=== PATIENT | female | born 1985 | race American Indian/Alaskan Native ===

== ENCOUNTER 2018-12-24 14:41 | Outpatient (CLI) | payer OTHER | END 2018-12-24 16:41 | disposition home or self-care (01) | LOC: NST 14:41 | DX: Z34.83 Encounter for supervision of other normal pregnancy, third trimester (principal) ==

== ENCOUNTER 2018-12-29 10:24 | Outpatient (CLI) | payer OTHER | END 2018-12-29 11:38 | disposition home or self-care (01) | LOC: NST 10:24 | DX: Z34.83 Encounter for supervision of other normal pregnancy, third trimester (principal) ==

== ENCOUNTER 2019-01-07 15:21 | Outpatient (CLI) | payer OTHER | END 2019-01-07 15:24 | disposition home or self-care (01) | LOC: RAD 15:21 | DX: M25.512 Pain in left shoulder (principal) ==

== ENCOUNTER 2019-01-14 14:57 | Inpatient (IN) | payer OTHER ==
[~2019-01-14] VITALS: Ht 157.5 cm; Wt 2.7 kg
[2019-01-14] MEDS ORDERED: MIRALAX17 GM PO (16:21)
[2019-01-14] MEDS ORDERED: IRON325 MG PO (16:21)
[2019-01-14] MEDS ORDERED: 8 HOUR PAIN RE650 M1 PO (16:21)
[2019-01-14] MEDS ORDERED: LOVENOX40 MG/0.4 SUBCUTANEO (16:21)
== END 2019-01-22 13:26 | disposition home or self-care (01) | DRG 788 ==
LOC: LDR 01-16 11:30 → O/R 01-19 05:30 → OB/GYN 01-19 05:30 → LDR 01-19 07:00 → OB/GYN 01-19 10:34 → LDR 01-19 11:30 → OB/GYN 01-19 13:41
PROVIDERS: ADMIT Obstetrics & Gynecology Maternal & Fetal Medicine
PROC: 4A1HXCZ Monitoring of Products of Conception, Cardiac Rate, External Approach (ICD-10-PCS; 2019-01-19)
PROC: 10D00Z1 Extraction of Products of Conception, Low, Open Approach (ICD-10-PCS; principal; 2019-01-19 07:00)
DX: O82 Encounter for cesarean delivery without indication (principal); O26.893 Other specified pregnancy related conditions, third trimester; G71.09 Other specified muscular dystrophies; S82.62XA Displaced fracture of lateral malleolus of left fibula, initial encounter for closed fracture; Z3A.37 37 weeks gestation of pregnancy; Z37.0 Single live birth; Z22.330 Carrier of Group B streptococcus

== ENCOUNTER → 2019-01-15 | Outpatient (CLI) | payer OTHER ==
[~2019-01-15] MED LIST: 8 HOUR PAIN RE650 M1 PO; IRON325 MG PO; LOVENOX40 MG/0.4 SUBCUTANEO; MIRALAX17 GM PO
== END | disposition home or self-care (01) ==
LOC: NUCLEAR 15:38
DX: I87.2 Venous insufficiency (chronic) (peripheral) (principal)

== ENCOUNTER 2019-01-26 14:24 | Outpatient (CLI) | payer OTHER | END 2019-01-26 14:40 | disposition home or self-care (01) | LOC: TOM 14:24 | DX: S82.892A Other fracture of left lower leg, initial encounter for closed fracture (principal) ==

== ENCOUNTER 2019-01-27 11:10 | Day surgery (SDC) | payer OTHER | END 2019-01-27 20:00 | disposition home or self-care (01) | LOC: CIR.AMB 11:10 | DX: S82.62XA Displaced fracture of lateral malleolus of left fibula, initial encounter for closed fracture (principal); S82.55XA Nondisplaced fracture of medial malleolus of left tibia, initial encounter for closed fracture; S82.292A Other fracture of shaft of left tibia, initial encounter for closed fracture; M25.772 Osteophyte, left ankle ==

== ENCOUNTER 2019-04-02 13:39 | Outpatient (CLI) | payer OTHER | END 2019-04-02 13:57 | disposition home or self-care (01) | LOC: RAD 13:39 | DX: S82.892D Other fracture of left lower leg, subsequent encounter for closed fracture with routine healing (principal) ==

== ENCOUNTER 2019-04-23 14:23 | Outpatient (CLI) | payer OTHER | END 2019-04-23 14:31 | disposition home or self-care (01) | LOC: NUCLEAR 14:23 | DX: M81.0 Age-related osteoporosis without current pathological fracture (principal) ==